=== PATIENT | male | born 1935 | race Caucasian/White ===

== ENCOUNTER 2016-10-06 09:25 | Inpatient (IN) ==
[2016-10-06] MEDS ORDERED: FUROSEMIDE 40 MG/4 ML VIAL IV STA (10:29)
[2016-10-06] MEDS ORDERED: PANTOPRAZOLE 40 MG VIAL IV STA (10:29)
[2016-10-06] MEDS ORDERED: ONDANSETRON 4 MG/2 ML VIAL IV STA ×2 (10:29→12:30)
[2016-10-06] MEDS ORDERED: MORPHINE 2 MG/1 ML SYRINGE IV STA (10:29)
[2016-10-06] MEDS ORDERED: ALUM/MAG/SIMETH/LIDO VISC 1:1 30 ML BOTTLE PO STA (10:29)
[2016-10-06 10:37] LABS: Basophils % 0.4 % (0.0-0.8); Eosinophils # 0.1 10*3/uL (0.0-0.87); Eosinophils % 0.8 % (0.00-10.9); Hematocrit 37.7 VOL% (42.0-52.0); Hemoglobin 12.9 GM/DL (14.0-18.0); Immature Granulocytes % 0.4 %; Immature Granulocytes Absolute 0.04 #; Lymphocytes # 1.3 10*3/uL (1.4-4.0); Lymphocytes % 12.6 % (21.2-54.2); Mean Corpuscular HGB Conc 34.2 GM/DL (32-36); Mean Corpuscular Hemoglobin 33 PG (27-34); Mean Corpuscular Volume 96.7 FL (87-102); Mean Platelet Volume 10.1 FL (9.6-12.0); Monocytes % 10.1 % (1.7-12.7); Neutrophils # 7.6 10*3/uL (1.4-7.4); Neutrophils % 75.7 % (38.7-73.9); Platelet Count 136 T/CUMM (130-400); Red Cell Distribution Width 17.1 % (9.3-17.3)
[2016-10-06] MEDS ORDERED: ONDANSETRON 4 MG/2 ML VIAL ONE ×2 (10:53→12:27)
[2016-10-06] MEDS ORDERED: MORPHINE 2 MG/1 ML SYRINGE ONE (10:53)
[2016-10-06] MEDS ORDERED: PANTOPRAZOLE 40 MG VIAL IV ONE (10:53)
[2016-10-06] MEDS ORDERED: ALUM/MAG/SIMETH/LIDO VISC 1:1 30 ML BOTTLE PO ONE (10:53)
[2016-10-06] MEDS ORDERED: FUROSEMIDE 40 MG/4 ML VIAL ONE (10:53)
--- NOTE | 2016-10-06 11:00 | XRay Report ---
Portable chest Date: 10/06/2016 Clinical history: Generalized abdominal pain Comparison: 10/28/2012 Technique: Portable AP sitting chest Findings: The heart is minimally enlarged with uncoiling of the aorta. Chronic scarring in the lungs with atelectasis at the lung bases. Degenerative changes are noted. Impression: Chronic scarring with atelectasis at the lung bases. Minimal cardiomegaly. PROCEDURE INTERPRETED AT [facility] DEPARTMENT OF RADIOLOGY Final Report Signed by: Dr. Jenelle Beckford
--- NOTE | 2016-10-06 11:02 | XRay Report ---
Exam: XR abdomen 2V Date: 10/06/2016 10:30 AM Comparison: None Indication: Generalized abdominal pain Technique:[Supine abdomen] Findings: Increased fecal material in the colon with no evidence bowel obstruction. 3 mm left midpole renal calculus with nonspecific calcifications of the pelvis. Degenerative changes are noted. Impression: Nonobstructive bowel gas pattern. Increased fecal material consistent with constipation. 3 mm left midpole renal calculus with nonspecific calcifications in the pelvis. PROCEDURE INTERPRETED AT [facility] DEPARTMENT OF RADIOLOGY Final Report Signed by: Dr. Jenelle Beckford
[2016-10-06 11:09] LABS: Alanine Aminotransferase 34 U/L (16-61); Albumin 2.8 G/DL (3.4-5.0); Alkaline Phosphatase 69 U/L (45-117); Aspartate Amino Transferase 35 U/L (0-37); Blood Urea Nitrogen 28 MG/DL (7-18); Calcium 8.8 MG/DL (8.5-10.1); Glucose 102 MG/DL (74-106); Magnesium 1.9 MG/DL (1.8-2.4); Osmolality,Calculated 288.1 MOS/KG (273-304); Potassium 3.8 MMOL/L (3.5-5.1); Sodium 142 MMOL/L (136-145); Total Protein 6.7 G/DL (6.4-8.3); Troponin I Only < 0.015 NG/ML (0.00-0.045)
--- NOTE | 2016-10-06 11:10 | EKG Report ---
Stationary ECG Study [facility] ER Test Date: 10/06/2016 11:08:13 AM Pat Name: JOSE A MOORE Department: Room: Gender: M [employer] Worker: : [id number] Requested by: Akhil Barrett Order Number: [id number] Reading MD: NILDA GOODMAN Intervals [place] Rate: 54 P: -2 OR: 248 QRS: -74 QRSD: 161 T: -10 QT: 507 QTc: 492 Interpretive Statements SINUS BRADYCARDIA WITH PROLONGED OR INTERVAL RIGHT BUNDLE BRANCH BLOCK LEFT ANTERIOR FASCICULAR BLOCK Electronically Signed On 10-06-16 17:32:35 CDT by NILDA GOODMAN [email or web address]
--- NOTE | 2016-10-06 11:20 | CT Report ---
History: Generalized abdominal pain. Nausea. History of prostate cancer Date: 10/06/2016 Study: CT abdomen and pelvis without contrast Comparison exam: Contrast CT abdomen and pelvis September 29, 2016 Technique: Spiral CT sections were obtained from the lung bases to the pubic symphysis without contrast. The CT exam was performed using one or more of the following dose reduction techniques: Automated exposure control, adjustment of the mA and/or kV according to patient size, or use of iterative reconstruction technique. CT abdomen: The partially visualized lung bases are clear. There is mild to moderate coronary artery calcification involving the left anterior descending and left circumflex coronary arteries. There is mild increased haziness of the peripancreatic fat compatible with pancreatitis, which represents a change from the previous study. There is no focal soft tissue abnormality of the pancreas. There is some stable nodular calcification within or adjacent to the lateral border of the pancreatic head. There is moderate nonspecific gallbladder distention. There is no intrahepatic or gross extrahepatic biliary dilatation. The liver, spleen, and adrenal glands are unremarkable. There is no gross solid renal parenchymal mass. Benign renal cysts are present as before. There is a nonobstructing left renal stone measuring 5.2 mm in the mid left kidney. There is moderate left-sided hydronephrosis and hydroureter related to a region of mass effect in the bladder at the left UVJ, discussed below. There is no aneurysm of the mildly calcified aorta. There is no evidence of pneumoperitoneum or bowel obstruction. There is diverticulosis without saqib diverticulitis. CT pelvis: There is masslike thickening of the wall of the base of bladder, more so at and to the left of midline, which extends to the left UVJ region. This measures at least 2.8 cm thickness. This could represent invasion of the base of bladder from prostate cancer rather than primary bladder neoplasm. This appearance is similar to the comparison study. There is left inguinal lymphadenopathy which should be readily accessible to percutaneous biopsy if needed. This includes a 2.6 cm short axis diameter left inguinal lymph node. Impression: Continued prominent left-sided hydronephrosis and hydroureter related to abnormal soft tissue thickening of the base of the bladder at the UVJ level. This could represent metastatic prostate cancer rather than primary bladder neoplasm. Left inguinal pathologic lymphadenopathy CT changes consistent with acute pancreatitis Coronary artery calcification Left nephrolithiasis PROCEDURE INTERPRETED AT [facility] DEPARTMENT OF RADIOLOGY Final Report Signed by: Dr. Shanna Mendoza
--- NOTE | 2016-10-06 11:20 | Emergency Department Note ---
IJuan Kasabria, am scribing for, and in the presence of, Akhil Bravo MD 10:45. Lawrence Vaz Charles R, MD, personally performed the services described in this documentation, ascribed by Julianna Martinez in my presence, and it is both accurate and complete . Arrival - Arrival Chief Complaint: Abdominal / Flank Pain Stated Complaint: Right upper abdominal pain,left dvt,bladder&prosta ED Nursing Triage Note: Pt c/o generalized abd pain with nausea started at 0300 this am. Pt also wants his left leg checked B/C he was DX with a DVT in the leg Wed in [facility]. Mode of Arrival: Wheelchair Limitations: No Limitations Source: Patient Time Seen by Provider: 10/06/16 10:21 - History of Present Illness HPI Narrative: This is a 80 y/o white male presenting to the ED with c/o generalized epigastric tenderness with nausea that onset this morning at approximately 0300am. Pt states he was recently diagnosed with bladder and prostate cancer. While in [place] at [facility] pt was taken off Coumadin and given Lovenox injections to his abdomen. Pt's constipation is resolved because he has been taking stool softeners daily. He has nausea but denies vomiting, diarrhea, back pain, and chills. His PMHx is consistent with rheumatoid arthritis, poor circulation to feet, atrial fibrillation which is followed by Dr. Donald, and HTN. Pt's PCP is Dr. Wellington. Pt also wants his left leg evaluated because he was diagnosed with a DVT in his leg at [facility] Sunday. Consistency: constant Severity: moderate Allergies/Adverse Reactions: Allergies Allergy/AdvReac Type Severity Reaction Status Date / Time codeine Allergy Mild Nausea Verified 04/10/16 06:46 Iodinated Contrast Media - Allergy Mild Vomiting Verified 04/10/16 06:46 Oral and [Iodinated Contrast Media - IV Dye] Home Medications: Home Medications Medication Instructions Recorded Confirmed Type Amiodarone Tab [Cordarone Tab] 200 mg PO BID 04/07/16 10/06/16 History Ascorbic Acid [Vitamin C] 250 mg PO DAILY 04/07/16 10/06/16 History Atenolol 50 mg PO BID 04/07/16 10/06/16 History Furosemide Tab [Lasix Tab] 20 mg PO DAILY 04/07/16 10/06/16 History [place]-3S/Dha/Epa/Fish Oil [Fish 1 each PO DAILY 04/07/16 10/06/16 History Oil 1,200 mg Softgel] Psyllium Seed (with Sugar) 822 gm PO DAILY 04/07/16 10/06/16 History [Metamucil Powder] Ranitidine Tab [Zantac Tab] 75 mg PO DAILY 04/07/16 10/06/16 History Tamsulosin [Flomax] 0.4 mg PO DAILY 04/07/16 10/06/16 History Warfarin [Coumadin] 5 mg PO DAILY@1800 04/07/16 10/06/16 History Vitamin E Acid Succinate [Vitamin 1 tablet PO DAILY 06/16/16 10/06/16 History E] amLODIPine [Norvasc] 5 mg PO DAILY 06/21/16 10/06/16 History Enoxaparin [Lovenox] 120 mg SUBCUT Q24H 10/06/16 10/06/16 History Review of System - Review of System 12 point system: reviewed and no additional remarkable complaints except as stated - Review of System Constitutional: Absent: chills, fever, weakness Eyes: Absent: vision change Head/Ears/Nose/Throat: Absent: nasal drainage Respiratory: Absent: cough, wheezing Cardiovascular: Absent: chest pain, dyspnea on exertion Gastrointestinal: Present: abdominal pain (epigastric ), nausea. Absent: vomiting, diarrhea Genitourinary male: Absent: dysuria Musculoskeletal: Absent: arm pain, back pain, leg pain, neck pain Skin: Absent: rash Neurological: Absent: headache, weakness, numbness, confusion, vertigo Psychiatric: Absent: anxiety Endocrine: Absent: fatigue Hematological/Lymphatic: Absent: easy bleeding Allergic/Immunologic: Absent: facial swelling Medical,Surgical,& Family Hx - Medical History Cardio: History of: Cardiac Dysrhythmia (A FIB DR DONALD), CHF, Hypertension, Cardiovascular Problems (PT STATES POOR CIRCULATION IN FEET.) Psychological: No history of: Psychiatric Problems Neurology: History of: Vertigo No history of: Seizures HEENT: History of: Eye Problem (CATARACT SURGERY) Endocrine: History of: Dyslipidemia Rheumatology: History of;: Rheumatoid Arthritis Respiratory: History of: Pneumonia (PAST HX 1977) Renal: No history of: Renal Problems Genitourinary: History of: Bladder Problem (GROWTH BLADDER), Kidney Stones ( PAST HX), Prostate Problems (DR HIGUERA PAST HX OF PROSTATE CANCER 1998) Gastrointestinal: History of: GERD, Hemorrhoids (INTERNAL) Hematology: History of: Clotting Problems (DVT LEFT LEG 1989) Other: History of: Cancer (PROSTATE CANCER, SKIN CANCER UNDER LEFT EYE) - Surgical History Cardiac Surgeries: Sugical HX of: Cardiac Surgery (LEFT LEG VEIN ABLATION 2011. DR JIM) Thoracic Surgeries: Surgical HX of;: Lithotripsy (X1 ) HEENT Surgeries: Surgical HX of: Eye Surgery (CATARACT SURGERY RIGHT EYE) Abdominal Surgeries: Surgical HX of: Colonoscopy (2014 DR SUGGS) Reproductive Surgeries: Surgical HX of;: Cystoscopy (), Genitourinary Surgery (TURB), Prostate Surgery, Vasectomy Orthopedic Surgeries: Surgical HX of;: Total Knee Replacement (LEFT) - Family History Family History: Reports;: Family Cancer (BROTHER), Family Diabetes (BROTHER), Family Heart Disease (SIBLINGS), Family Hypertension (PARENTS BROTHER), Family Stroke (PAREENTS) - Social History Smoking Status: Never smoker Exam Vital Signs: Vital Signs Temperature 98.6 F 10/06/16 09:51 Pulse Rate 56 L 10/06/16 09:51 Respiratory Rate 20 10/06/16 09:51 Blood Pressure 141/73 10/06/16 09:51 O2 Sat by Pulse Oximetry 96 10/06/16 09:27 - General General appearance: alert, in no apparent distress - Head Head exam: Present: atraumatic, normocephalic, normal inspection - Eye Eye exam: Present: normal appearance, PERRL, EOMI - ENT ENT exam: Present: normal exam, normal oropharynx, mucous membranes moist, TM's normal bilaterally, normal external ear exam - Neck Neck exam: Present: normal inspection, full ROM, trachea midline. Absent: tenderness - Chest Chest inspection: Present: normal inspection, symmetric chest wall rise. Absent : tenderness - Respiratory Respiratory exam: Present: normal lung sounds bilaterally - Cardiovascular Cardiovascular exam: Present: regular rate, normal rhythm, normal heart sounds - Abdominal Exam Abdominal exam: Present: soft, tenderness (epigastric ), normal bowel sounds. Absent: distention - Extremities Exam Extremities exam: Present: normal inspection, full ROM, normal capillary refill , pedal edema (+2 bilaterally). Absent: tenderness, calf tenderness - Back Exam Back exam: Present: normal inspection, full ROM. Absent: tenderness - Neurological Exam Neurological exam: Present: alert, oriented X3, CN II-XII intact, normal gait, reflexes normal - Psychiatric Psychiatric exam: Present: normal affect, normal mood - Skin Skin exam: Present: warm, dry, intact, normal color. Absent: rash, diaphoresis Course - Consultations Consultation #1: Hospitalist will admit patient Time: 12:12 Results - Labs CBC & BMP: 10/06/16 10:03 10/06/16 10:03 Lab Results: I have reviewed the patients labs Labs: Laboratory Tests 10/06/16 10:03 Sodium 142 Potassium 3.8 Chloride 109 H Carbon Dioxide 24 Anion Gap 12.8 BUN 28 H Creatinine 1.30 GFR Calculation 74 BUN/Creatinine Ratio 21.00 H Glucose 102 Calculated Osmolality 288.1 Calcium 8.8 Magnesium 1.9 Total Bilirubin 0.50 AST 35 ALT 34 Alkaline Phosphatase 69 Troponin I < 0.015 Total Protein 6.7 Albumin 2.8 L Globulin 3.9 H Albumin/Globulin Ratio 0.7 L Lipase 46599.0 H - Diagnostic Findings Procedure: Abdominal x-ray: report reviewed by me (nonobstructive bowel gas pattern. Increased fecal material consistent with constipation. 3mm left midpole renal calculus with nonspecific calcifications in the pelvis. ), Chest x -ray: report reviewed by me (chronic scarring with atelectasis at the lung bases. Minimal cardiomegaly.) Critical Care Time Critical Care Time: Yes Total Critical Care Time: 60 Disposition Clinical Impression: Abdominal pain, Pancreatitis, Nausea & vomiting, Prostate bladder cancer Case discussed with: patient, patient's family Disposition: Still a Patient Condition: Guarded Time of Disposition: 12:13
[2016-10-06 11:38] LABS: Amylase 1510 U/L (25-115)
[2016-10-06 12:14] LABS: Apearance,Urine CLEAR (Clear); Bilirubin,Urine Negative (Negative); Blood, Urine Negative (Negative); Glucose,Urine (UA) Negative (Negative); Ketones,Urine Negative (Negative); Mucus,Urine Occasional /LPF (Occasional); Nitrite,Urine Negative (Negative); Protein,Urine Negative; RBC,Urine 1 /HPF (0-4); Urine Color Straw (Yellow); Urine Specific Gravity 1.006 (1.001-1.035); Urine Urobilinogen < 2.0 EU/DL (0.2-1.0); WBC,Urine 2 /HPF (0-6)
--- NOTE | 2016-10-06 13:06 | Hospitalist History & Physical ---
Assessment and Plan - Time spent with patient Time spent with patient: Greater than 30 minutes (1) Left leg DVT Status: Acute Assessment and plan: Mr. Lewis is a very pleasant 80-year-old white male with history of hypertension , A. fib on weight-based Lovenox since Sunday, bladder cancer status post chemo, prostate cancer 2 admitted by the hospitalist service with nausea and vomiting and abdominal pain due to pancreatitis. Patient is being admitted to the floor on a monitored bed and given IV fluids, n.p.o. status, pain and nausea control. Oncology will be consulted for his bladder and prostate cancer and management of this new onset DVT. As of Sunday patient's Coumadin had been stopped and weight-based Lovenox had been started per physician at [facility]. We will go ahead and place a Bonilla due to the volume of fluids to be given and patient's dysuria. A Bonilla cannot be placed by nursing staff will go ahead and consult urology to help. Patient's home meds will be restarted as well. Dr. Ayala to see and examined patient and further recommendations to follow. Current Visit: Yes (2) Bladder cancer Status: Acute Current Visit: Yes (3) Prostate cancer Status: Acute Current Visit: Yes (4) History of atrial fibrillation Status: Acute Current Visit: Yes (5) Hypertension Status: Acute Current Visit: Yes (6) Abdominal pain Status: Acute Current Visit: Yes (7) Pancreatitis Status: Acute Current Visit: Yes (8) Nausea & vomiting Status: Acute Current Visit: Yes History of Present Illness Chief complaint: Abdominal pain, nausea, vomiting History of present illness: Mr. Lewis is a 80 year old male with history of A. fib on Coumadin, prostate cancer 2, bladder cancer, and hypertension presenting to the ED with nausea vomiting and abdominal pain that started acutely at 3 AM this morning. Patient states the pain woke him up and was a 10/10 with more in the epigastrium area. Patient states this is associated with nausea and vomiting as well. Patient states he was diagnosed with prostate and bladder cancer around May. He is undergone [address] Reno with no shrinkage of the tumor and he was sent to [facility] on Sunday for further evaluation. Blood clot was found on Sunday in the left lower leg with patient's INR on Coumadin being 2.2. The doctor at [facility] stopped his Coumadin and put him on weight-based Lovenox twice daily. Patient states he can urinate but it just trickles out mostly. He has also had loss of appetite and generalized weakness since starting chemo. Patient's loan clerk is Dr. Donald and urologist is Dr. Higuera. Upon exam patient is alert and oriented but he is uncomfortable due to just not feeling well. He is tender to palpation throughout his abdomen, especially in the epigastric and left upper quadrant. Patient has bilateral lower extremity edema with left greater than the right. CT scan of the abdomen and pelvis showed continued prominent left-sided hydronephrosis and hydroureter related to abnormal soft tissue thickening at the base of the bladder at the UVJ level. This represents metastatic prostate cancer and primary bladder neoplasm. Patient also has increased haziness of the peripancreatic fat compatible with pancreatitis which is a change from his previous study. There is moderate gallbladder distention with no extrahepatic biliary dilatation. Patient's white count is normal and H&H is stable. Patient's amylase is 1510 and lipase is 23,131. His liver enzymes are normal. Patient denies headache, dysphasia, chest pain, shortness of breath, or constipation. Patient's case was discussed with Dr. Bravo the ED physician and Dr. Ayala the attending hospitalist, it was agreed patient would be admitted for further evaluation and treatment. Home Medications Medication Instructions Recorded Confirmed Type Amiodarone Tab [Cordarone Tab] 200 mg PO BID 04/07/16 10/06/16 History Ascorbic Acid [Vitamin C] 250 mg PO DAILY 04/07/16 10/06/16 History Atenolol 50 mg PO BID 04/07/16 10/06/16 History Furosemide Tab [Lasix Tab] 20 mg PO DAILY 04/07/16 10/06/16 History [place]-3S/Dha/Epa/Fish Oil [Fish 1 each PO DAILY 04/07/16 10/06/16 History Oil 1,200 mg Softgel] Psyllium Seed (with Sugar) 822 gm PO DAILY 04/07/16 10/06/16 History [Metamucil Powder] Ranitidine Tab [Zantac Tab] 75 mg PO DAILY 04/07/16 10/06/16 History Tamsulosin [Flomax] 0.4 mg PO DAILY 04/07/16 10/06/16 History Warfarin [Coumadin] 5 mg PO DAILY@1800 04/07/16 10/06/16 History Vitamin E Acid Succinate [Vitamin 1 tablet PO DAILY 06/16/16 10/06/16 History E] amLODIPine [Norvasc] 5 mg PO DAILY 06/21/16 10/06/16 History Enoxaparin [Lovenox] 120 mg SUBCUT Q24H 10/06/16 10/06/16 History Allergies Allergy/AdvReac Type Severity Reaction Status Date / Time codeine Allergy Mild Nausea Verified 04/10/16 06:46 Iodinated Contrast Media - Allergy Mild Vomiting Verified 04/10/16 06:46 Oral and [Iodinated Contrast Media - IV Dye] Medical,Surgical,& Family Hx - Medical History Cardio: History of: Cardiac Dysrhythmia (A FIB DR DONALD), CHF, Hypertension, Cardiovascular Problems (PT STATES POOR CIRCULATION IN FEET.) Psychological: No history of: Psychiatric Problems Neurology: History of: Vertigo No history of: Seizures HEENT: History of: Eye Problem (CATARACT SURGERY) Endocrine: History of: Dyslipidemia Rheumatology: History of;: Rheumatoid Arthritis Respiratory: History of: Pneumonia (PAST HX 1977) Renal: No history of: Renal Problems Genitourinary: History of: Bladder Problem (GROWTH BLADDER), Kidney Stones ( PAST HX), Prostate Problems (DR HIGUERA PAST HX OF PROSTATE CANCER 1998) Gastrointestinal: History of: GERD, Hemorrhoids (INTERNAL) Hematology: History of: Clotting Problems (DVT LEFT LEG 1989) Other: History of: Cancer (PROSTATE CANCER, SKIN CANCER UNDER LEFT EYE) - Surgical History Cardiac Surgeries: Sugical HX of: Cardiac Surgery (LEFT LEG VEIN ABLATION 2011. DR JIM) Thoracic Surgeries: Surgical HX of;: Lithotripsy (X1 ) HEENT Surgeries: Surgical HX of: Eye Surgery (CATARACT SURGERY RIGHT EYE) Abdominal Surgeries: Surgical HX of: Colonoscopy (2014 DR SUGGS) Reproductive Surgeries: Surgical HX of;: Cystoscopy (), Genitourinary Surgery (TURB), Prostate Surgery, Vasectomy Orthopedic Surgeries: Surgical HX of;: Total Knee Replacement (LEFT) - Family History Family History: Reports;: Family Cancer (BROTHER), Family Diabetes (BROTHER), Family Heart Disease (SIBLINGS), Family Hypertension (PARENTS BROTHER), Family Stroke (PAREENTS) - Social History Smoking Status: Never smoker Frequency of Alcohol Use: None Type of Drug Use: None Marital Status: Lives With:: Spouse Functional capacity: independent ambulation Review of systems: A complete 10 system review of systems was obtained and pertinent positives and negatives per HPI Exam - Constitutional Vitals: Period Temp Pulse Resp BP Sys/Herrera Pulse Ox Last 24 Hr 98.6 F-98.6 F 56-56 20-20 141-141/73-73 96 Exam: Constitutional System: No distress. No tremulousness. Head: Normocephalic, atraumatic. Ears, Nose and Throat System: No evidence of Otitis or Mastoiditis. No epistaxis or discharge Eyes System: Pupils equal, round, and reactive. Extraocular muscles intact. Neck: Supple, without adenopathy, No jugular venous distention. No thyromegaly, neck mass, or prior surgery apparent. Respiratory System: Chest clear to auscultation. Cardiovascular System: Heart with irregularly irregular and bradycardic rate and rhythm. No murmur. GI System: Abdomen soft, tender to palpation throughout the abdomen more so in epigastric region and left upper quadrant patient is also tender and solid in the suprapubic region. Normo active bowel sounds present. Musculoskeletal System: limbs with bilateral pedal edema with left greater than right. Full distal pulses. Neurological System: No discernable sensory deficit. No aphasia Psychiatric System: Conversation is rational Results - Labs CBC & BMP: 10/06/16 10:03 10/06/16 10:03 Lab Results: I have reviewed the past 24 hour labs - EKG EKG shows: bradycardia, atrial fibrillation - Impressions EKG shows sinus bradycardia with prolonged NH interval, right bundle branch block, possible anterior NM of indeterminate age, inferior NM of indeterminate age - Diagnostic Findings Procedure: Abdominal x-ray: report reviewed by me (Nonobstructive bowel gas pattern with increased fecal material consistent with constipation 3 mm left midpole renal calculus), Chest x-ray: report reviewed by me (Chronic scarring with atelectasis of the lung bases with minimal cardiomegaly), CT Abdomen and Pelvis: report reviewed by me, pending (Prominent left-sided hydronephrosis and hydroureter related to abnormal soft tissue thickening at the base of the bladder at the UVJ level this represents metastatic prostate cancer primary bladder neoplasm. Mild increased haziness of the peripancreatic fat compatible with pancreatitis with moderate nonspecific gallbladder distention.)
[2016-10-06] MEDS ORDERED: ZALEPLON 5 MG CAPSULE PO PRN (13:56)
[2016-10-06] MEDS ORDERED: ONDANSETRON 4 MG/2 ML VIAL IV PRN (13:56)
[2016-10-06] MEDS ORDERED: ENOXAPARIN 120 MG/0.8 ML SYRINGE SUBCUT SCH (14:00)
[2016-10-06] MEDS: SODIUM CHLORIDE 0.9% 1,000 ML IV SCH ×2 (15:09→20:53)
[2016-10-06] MEDS: ENOXAPARIN 120 MG/0.8 ML SYRINGE SUBCUT SCH (15:10)
[2016-10-06] MEDS: FAMOTIDINE 20 MG/2 ML VIAL IV SCH (15:10)
[2016-10-06 16:21] LABS: Apearance,Urine CLEAR (Clear); Bacteria,Urine Occasional /HPF (Few); Bilirubin,Urine Negative (Negative); Blood, Urine Moderate mg/dL (Negative); Glucose,Urine (UA) Negative (Negative); Hyaline Casts,Urine 1 /LPF (0-3); Ketones,Urine Negative (Negative); Mucus,Urine Occasional /LPF (Occasional); Nitrite,Urine Negative (Negative); Protein,Urine Negative; RBC,Urine 37 /HPF (0-4); Urine Color Straw (Yellow); Urine Specific Gravity 1.006 (1.001-1.035); Urine Urobilinogen < 2.0 EU/DL (0.2-1.0); WBC,Urine 6 /HPF (0-6)
[2016-10-06] MEDS: MORPHINE 2 MG/1 ML SYRINGE IV PRN (17:08)
[2016-10-06] MEDS: AMIODARONE 200 MG TABLET PO SCH (20:51)
[2016-10-06] MEDS: ATENOLOL 50 MG TABLET PO SCH (20:51)
[2016-10-07] MEDS: SODIUM CHLORIDE 0.9% 1,000 ML IV SCH ×3 (01:30→20:29)
[2016-10-07] MEDS: ENOXAPARIN 120 MG/0.8 ML SYRINGE SUBCUT SCH (01:42)
[2016-10-07] MEDS: FAMOTIDINE 20 MG/2 ML VIAL IV SCH ×2 (01:42→14:03)
[2016-10-07 05:42] LABS: Basophils % 0.2 % (0.0-0.8); Eosinophils % 0.3 % (0.00-10.9); Hematocrit 34.7 VOL% (42.0-52.0); Hemoglobin 11.5 GM/DL (14.0-18.0); Immature Granulocytes % 0.6 %; Immature Granulocytes Absolute 0.07 #; Lymphocytes # 1.1 10*3/uL (1.4-4.0); Lymphocytes % 9.1 % (21.2-54.2); Mean Corpuscular HGB Conc 33.1 GM/DL (32-36); Mean Corpuscular Hemoglobin 32 PG (27-34); Mean Corpuscular Volume 97.7 FL (87-102); Mean Platelet Volume 10.4 FL (9.6-12.0); Monocytes # 1.3 10*3/uL (0.11-0.8); Monocytes % 10.6 % (1.7-12.7); Neutrophils # 9.9 10*3/uL (1.4-7.4); Neutrophils % 79.2 % (38.7-73.9); Platelet Count 124 T/CUMM (130-400); Red Blood Count 3.55 MC/CUMM (3.8-5.5); Red Cell Distribution Width 17.2 % (9.3-17.3); White Blood Count 12.5 T/CUMM (4-12)
[2016-10-07 06:19] LABS: Calcium 8.1 MG/DL (8.5-10.1); Magnesium 1.8 MG/DL (1.8-2.4); Osmolality,Calculated 287.8 MOS/KG (273-304); Potassium 3.6 MMOL/L (3.5-5.1)
--- NOTE | 2016-10-07 08:48 | Hospitalist Progress Note ---
Assessment and Plan (1) Pancreatitis Status: Acute Assessment and plan: The patient is well hydrated and pain is beginning to improve. We will continue with clear liquids for now and recheck electrolytes and amylase tomorrow. We await consultation with Dr. Camargo today. Current Visit: Yes Qualifiers: Chronicity: acute Pancreatitis type: idiopathic Acute pancreatitis complication: no infection or necrosis Qualified Code(s): K85.00 - Idiopathic acute pancreatitis without necrosis or infection (2) Abdominal pain Status: Acute Current Visit: Yes (3) Left leg DVT Status: Acute Current Visit: Yes Qualifiers: Affected thrombotic vein of extremity: femoral (4) Bladder cancer Status: Acute Current Visit: Yes (5) Prostate cancer Status: Acute Current Visit: Yes Hospitalist: Subjective Interval history: The patient is a little stronger today and does not appear flushed. He still has epigastric discomfort but less generalized abdominal pain. The patient was able to tolerate clear liquids this morning. Exam - Constitutional Vitals: Period Temp Pulse Resp BP Sys/Herrera Pulse Ox Last 24 Hr 97.6 F-98.9 F 53-84 16-20 136-187/64-84 92-95 Exam: Constitutional System: Mild distress. No tremulousness. Head: Normocephalic, atraumatic. Ears, Nose and Throat System: No evidence of Otitis or Mastoiditis. No epistaxis or discharge Eyes System: Pupils equal, round, and reactive. Extraocular muscles intact. Neck: Supple, without adenopathy, No jugular venous distention. No thyromegaly , neck mass, or prior surgery apparent. Respiratory System: Chest clear to auscultation. Cardiovascular System: Heart with regular rate and rhythm. No murmur. GI System: Abdomen soft, moderate epigastric tenderness without guarding. Hypo- active bowel sounds present. Musculoskeletal System: limbs with 1+ pedal edema. Full distal pulses. Neurological System: No discernable sensory deficit. No aphasia Psychiatric System: Conversation is rational Results - Labs CBC & BMP: 10/07/16 04:46 10/07/16 04:46 Lab Results: I have reviewed the past 24 hour labs Quality Measures - VTE Contraindication to Mechanical VTE Prophylaxis: Current Diagnosis of DVT
[2016-10-07] MEDS: ATENOLOL 50 MG TABLET PO SCH ×2 (08:50→20:28)
[2016-10-07] MEDS: AMIODARONE 200 MG TABLET PO SCH ×2 (08:51→20:29)
[2016-10-07] MEDS: VITAMIN E 200 UNIT CAPSULE PO SCH (08:51)
[2016-10-07] MEDS: FUROSEMIDE 20 MG TABLET PO SCH (08:51)
[2016-10-07] MEDS: ASCORBIC ACID 500 MG TABLET PO SCH (08:51)
[2016-10-07] MEDS: OMEGA 3 ACID ETHYL ESTERS 1 GM CAPSULE PO SCH (08:52)
[2016-10-07] MEDS: PSYLLIUM POWDER 3.7 GM/PACK PO SCH (08:52)
[2016-10-07] MEDS ORDERED: TAMSULOSIN 0.4 MG CAPSULE PO SCH (09:00)
[2016-10-07] MEDS: MORPHINE 2 MG/1 ML SYRINGE IV PRN (09:55)
--- NOTE | 2016-10-07 12:17 | Gastrointestinal Consult Note ---
Assessment and Plan - Time spent with patient Time spent with patient: Greater than 30 minutes (1) Pancreatitis Status: Acute Current Visit: Yes Qualifiers: Qualified Code(s): K85.00 - Idiopathic acute pancreatitis without necrosis or infection (2) Other specified counseling Status: Acute Current Visit: Yes History of Present Illness History of present illness: Mr. Lewis is a 80 year old male Home Medications Medication Instructions Recorded Confirmed Type Amiodarone Tab [Cordarone Tab] 200 mg PO BID 04/07/16 10/06/16 History Ascorbic Acid [Vitamin C] 250 mg PO DAILY 04/07/16 10/06/16 History Atenolol 50 mg PO BID 04/07/16 10/06/16 History Furosemide Tab [Lasix Tab] 20 mg PO DAILY 04/07/16 10/06/16 History [place]-3S/Dha/Epa/Fish Oil [Fish 1 each PO DAILY 04/07/16 10/06/16 History Oil 1,200 mg Softgel] Psyllium Seed (with Sugar) 822 gm PO DAILY 04/07/16 10/06/16 History [Metamucil Powder] Ranitidine Tab [Zantac Tab] 75 mg PO DAILY 04/07/16 10/06/16 History Tamsulosin [Flomax] 0.4 mg PO DAILY 04/07/16 10/06/16 History Vitamin E Acid Succinate [Vitamin 1 tablet PO DAILY 06/16/16 10/06/16 History E] amLODIPine [Norvasc] 5 mg PO DAILY 06/21/16 10/06/16 History Enoxaparin [Lovenox] 120 mg SUBCUT Q24H 10/06/16 10/06/16 History Allergies Allergy/AdvReac Type Severity Reaction Status Date / Time codeine Allergy Mild Nausea Verified 04/10/16 06:46 Iodinated Contrast Media - Allergy Mild Vomiting Verified 04/10/16 06:46 Oral and [Iodinated Contrast Media - IV Dye] Medical,Surgical,& Family Hx - Medical History Cardio: History of: Cardiac Dysrhythmia (A FIB DR GOODMAN), CHF, Hypertension, Cardiovascular Problems (PT STATES POOR CIRCULATION IN FEET.) Psychological: No history of: Psychiatric Problems Neurology: History of: Vertigo No history of: Seizures HEENT: History of: Eye Problem (CATARACT SURGERY) Endocrine: History of: Dyslipidemia Rheumatology: History of;: Rheumatoid Arthritis Respiratory: History of: Pneumonia (PAST HX 1977) Renal: No history of: Renal Problems Genitourinary: History of: Bladder Problem (GROWTH BLADDER), Kidney Stones ( PAST HX), Prostate Problems (DR HIGUERA PAST HX OF PROSTATE CANCER 1998) Gastrointestinal: History of: GERD, Hemorrhoids (INTERNAL) Hematology: History of: Clotting Problems (DVT LEFT LEG 1989) Other: History of: Cancer (PROSTATE CANCER, SKIN CANCER UNDER LEFT EYE) - Surgical History Cardiac Surgeries: Sugical HX of: Cardiac Surgery (LEFT LEG VEIN ABLATION 2011. DR JIM) Thoracic Surgeries: Surgical HX of;: Lithotripsy (X1 ) HEENT Surgeries: Surgical HX of: Eye Surgery (CATARACT SURGERY RIGHT EYE) Abdominal Surgeries: Surgical HX of: Colonoscopy (2014 DR SUGGS) Reproductive Surgeries: Surgical HX of;: Cystoscopy (), Genitourinary Surgery (TURB), Prostate Surgery, Vasectomy Orthopedic Surgeries: Surgical HX of;: Total Knee Replacement (LEFT) - Family History Family History: Reports;: Family Cancer (BROTHER), Family Diabetes (BROTHER), Family Heart Disease (SIBLINGS), Family Hematology (child), Family Hypertension (PARENTS BROTHER), Family Stroke (PARENTS) - Social History Smoking Status: Never smoker Frequency of Alcohol Use: None Type of Drug Use: None Exam - Constitutional Vitals: Period Temp Pulse Resp BP Sys/Herrera Pulse Ox Last 24 Hr 97.6 F-98.9 F 53-84 16-20 131-187/62-84 91-95 Results - Labs CBC & BMP: 10/07/16 04:46 10/07/16 04:46 Quality Measures - VTE Contraindication to Mechanical VTE Prophylaxis: Current Diagnosis of DVT Note Addendum: PLEASE NOTE -- automatic citation of patient information is unavoidable in this electronic note. I have made a reasonable effort to review the information cited , but it is not a part of my evaluation, impression, or recommendation unless specifically discussed in the dictated text that follows. As well, voice recognition software was used in the creation of this clinical note. Reasonable effort was made to identify and correct gross errors. Despite proofreading, errors in restorative rehab aide may be present, including nonsense verbiage at times. If you encounter such an error, please contact me at [phone] for discussion and correction. -- Mary Jo Chief complaint: abdominal pain, nausea, vomiting History of present illness: This is a new patient, a 80-year-old male seen by consultation for evaluation of abdominal pain with nausea and vomiting. The patient is admitted to the hospitalist service under the care of Dr. Ayala with a primary diagnosis of acute deep venous thrombosis and acute pancreatitis. The patient was admitted yesterday through the emergency department with primary complaint of abdominal pain, nausea, and vomiting. Evaluation at that time revealed elevated amylase and lipase as well as abnormal CT findings involving the pancreas and ultrasound finding of acute deep venous thrombosis. There was not evidence of biliary disease. The patient was admitted overnight and treated , as expected, with aggressive hydration and bowel rest. He now reports feeling some better but with continued mild abdominal discomfort. Of note, the patient suffers from prostate cancer and bladder cancer. He is under the care of Dr. Machado in this regard and has recently been referred to [facility] for evaluation and treatment of recalcitrant disease. There have been some medication changes recently. Patient denies fever, chills, night sweats, rigors, headache, dizziness, neck pain, visual changes, redness of the eyes, dysphagia, odynophagia, difficulty chewing, chest pain, shortness of breath, regurgitation, hematemesis, diarrhea, hematochezia, melena, proctalgia, constipation, change in bowel pattern generally, dysuria, skin changes, temperature regulation issues, flushing, easy bleeding/bruising, mental status change, yellowing of the eyes/skin, cutaneous eruptions, family history of gastrointestinal cancer and colon polyps, and other complaints in general. Review of systems: 12 point review of systems was negative except as documented above. Outpatient medications: amiodarone, vitamin C, atenolol, Lasix, Zantac, Flomax, Coumadin, Norvasc, Lovenox Inpatient medications: amiodarone, atenolol, Lovenox, Pepcid, Lasix, [place], Zofran, sodium chloride infusion, Flomax, [place] Past Medical History: atrial fibrillation, congestive heart failure, hypertension, vertigo, hyperlipidemia, rheumatoid arthritis, bladder growth, prostate cancer, gastroesophageal reflux disease, deep venous thrombosis Social history: negative tobacco. Negative alcohol Family history: no gastrointestinal cancers Physical examination: Vital Signs: Current vital signs reviewed and documented above. General Appearance: lying in bed. Comfortable. No apparent distress. Head: Normocephalic. Neck: Palpation of the neck revealed no abnormalities. Eyes: No scleral icterus. No scleral injection. No conjunctival pallor. Oral Cavity: Odor of breath was normal. No drooling was observed. Lips showed no abnormalities. Floor of the mouth showed no abnormalities. Pharynx: Oropharynx was normal. Lungs: Respiration rhythm and depth was normal. Cardiovascular: Heart rate and rhythm were normal. No murmurs were appreciated. Abdomen: abdomen was not distended. Abdominal palpation revealed mild tenderness and no hepatosplenomegaly. Ascites was not discovered. Abdominal auscultation revealed positive bowel sounds. Musculoskeletal System: Musculoskeletal system was grossly normal. Neurological: level of consciousness was normal. Speech was normal. Skin: General appearance was normal. Color and pigmentation were normal. No skin lesions. Laboratory: white blood count 12.5, hemoglobin 11.5, hematocrit 34.7, platelets 124, ALT 34, AST 35, total bilirubin 0.5, albumin 2.8, total protein 6.7, amylase 1500, lipase 23,000 Radiology: CT of the abdomen and pelvis, main 2016 -- CT changes consistent with acute pancreatitis; several non-G.I. findings Impressions: 1. Acute pancreatitis -- I agree with current therapy including aggressive volume resuscitation, bowel rest, and analgesia as indicated. The patient does not have evidence of biliary obstruction. Neither is there evidence of chronic alcohol abuse. The patient does not have evidence of severe hyperlipidemia or hypercalcemia. In this setting, medication-induced pancreatitis should be considered and careful scrutiny of his outpatient and inpatient medications list is important. Both Lasix and amiodarone are class I medications in this regard. As well there are case reports of pancreatitis with Lovenox and the patient recently started this medication. Some consideration should be given to discontinuing if feasible. Otherwise, continued supportive care is most reasonable. 2. Other specified counseling -- The patient was seen for greater than 30 minutes. The patient was counseled for greater than 50% of this time regarding differential diagnosis, likely diagnosis, diagnostic and therapeutic alternatives, risks/benefits/alternatives of medications and procedures, and plan of care generally. The patient expressed understanding and wishes to proceed. Recommendations: -- continue aggressive volume management -- continued bowel rest -- continued analgesia as indicated -- minimize medications to whatever extent possible with particular consideration of Lovenox, Lasix and amiodarone -- thank you for this consultation. We will follow with you.
--- NOTE | 2016-10-07 12:43 | Oncology Consult Note ---
History of Present Illness Chief complaint: Pancreatitis History of present illness: Mr. Lewis is a 80 year old male who is followed by Dr. 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 He also has bladder cancer including soft tissue invasion. He has been to [facility] and it was a recommendation that the patient received neoadjuvant chemotherapy. He has been placed on Gemzar plus cis-sac & fox of [place]. Dr. Jimenez mentioned in his dictation of August 23, 2016 that he was proceeding with day 1 of cycle 3 at that time and planned to give 4 cycles. Mr. Lewis developed DVT of the left leg more recently and was on Lovenox when he was admitted with pancreatitis. His daughter, who is a nurse, mention the fact that Lovenox can cause pancreatitis and she is correct. For this reason, I am switching him to Xarelto at a dose of 10 mg p.o. twice daily for now. Lab work on admission included a relatively normal CBC although his hemoglobin is minimally down at 12.9. He has a normal white cell count with an absolute neutrophil count of 7600 and his platelet count is 136,000. He has not reported any GI bleeding. On October 06, his amylase was 1510 with a lipase of 23,130. His comprehensive metabolic profile and LDH are essentially normal otherwise. ROS Gen.: Chronic weakness and chronic lower abdominal discomfort. Eyes: He has previously had cataract surgery. No history of chronic disease, infections or visual loss. 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 Also history of circulatory problems, atrial fibrillation, hypertension. GI: He has had relatively sudden onset of epigastric abdominal pain with nausea and anorexia. He has a history of GERD and hemorrhoids. : He has a history of kidney stones for which he has had lithotripsy.. Chronic lower abdominal discomfort primarily due to prostate and bladder cancer. Musculoskeletal: History of rheumatoid arthritis. He has had a total left knee replacement. Neurologic: No history of seizures, convulsions or paralysis. Psychiatric: No history of chronic psychiatric illness or psychiatric medications. Lymphatic: No history of significant or long-term lymphadenopathy Hematologic: He has a history of DVT and thrombophlebitis for several years, over 20. Skin: No history of chronic skin infections or rashes or significant skin lesions. Family history is positive for diabetes and cancer and one brother as well as family history of strokes and hypertension and heart disease. Social history: He does not use alcohol. He has never smoked. Physical examination: General: The patient is somewhat chronically ill-appearing and also appears acutely ill. Eyes: Normal lids and conjunctivae. ENT: Dentition is only fair. His hearing is normal. His oral mucosa and pharynx are normal. Neck: His trachea is midline. He has no neck masses. Lungs: Breath sounds are relatively normal without rubs, rales or rhonchi. There is symmetrical unlabored chest motion with respiration. Cardiovascular: He has no jugular venous distention, or clubbing. His heart rhythm is regular without murmur, gallop or rub. Abdomen: He is extremely tender in the epigastric area. I cannot identify ascites but he is very tender so I cannot check very closely. His abdomen is protuberant and appears somewhat distended. Musculoskeletal: There is no focal muscle atrophy or bone or joint deformity. Neurologic: Cranial nerves II through XII are intact. Therer are no focal neurologic deficits. Nodes: I palpate no submental, submandibular, cervical or supraclavicular adenopathy. Skin: Identified no ecchymoses or petechiae. Impression: Pancreatitis: The patient mentioned the possibility of Lovenox causing it and I agree that this is a possibility so I am holding Lovenox and start him on Xarelto at a relatively low dose considering his other problems. DVT: We are adjusting the dose of his anticoagulants and switching to rivaroxaban. Bladder cancer: with muscle invasion, receiving neoadjuvant chemotherapy. Prostate cancer: Status uncertain Home Medications Medication Instructions Recorded Confirmed Type Amiodarone Tab [Cordarone Tab] 200 mg PO BID 04/07/16 10/06/16 History Ascorbic Acid [Vitamin C] 250 mg PO DAILY 04/07/16 10/06/16 History Atenolol 50 mg PO BID 04/07/16 10/06/16 History Furosemide Tab [Lasix Tab] 20 mg PO DAILY 04/07/16 10/06/16 History [place]-3S/Dha/Epa/Fish Oil [Fish 1 each PO DAILY 04/07/16 10/06/16 History Oil 1,200 mg Softgel] Psyllium Seed (with Sugar) 822 gm PO DAILY 04/07/16 10/06/16 History [Metamucil Powder] Ranitidine Tab [Zantac Tab] 75 mg PO DAILY 04/07/16 10/06/16 History Tamsulosin [Flomax] 0.4 mg PO DAILY 04/07/16 10/06/16 History Vitamin E Acid Succinate [Vitamin 1 tablet PO DAILY 06/16/16 10/06/16 History E] amLODIPine [Norvasc] 5 mg PO DAILY 06/21/16 10/06/16 History Enoxaparin [Lovenox] 120 mg SUBCUT Q24H 10/06/16 10/06/16 History Allergies Allergy/AdvReac Type Severity Reaction Status Date / Time codeine Allergy Mild Nausea Verified 04/10/16 06:46 Iodinated Contrast Media - Allergy Mild Vomiting Verified 04/10/16 06:46 Oral and [Iodinated Contrast Media - IV Dye] Medical,Surgical,& Family Hx - Medical History Cardio: History of: Cardiac Dysrhythmia (A FIB DR GOODMAN), CHF, Hypertension, Cardiovascular Problems (PT STATES POOR CIRCULATION IN FEET.) Psychological: No history of: Psychiatric Problems Neurology: History of: Vertigo No history of: Seizures HEENT: History of: Eye Problem (CATARACT SURGERY) Endocrine: History of: Dyslipidemia Rheumatology: History of;: Rheumatoid Arthritis Respiratory: History of: Pneumonia (PAST HX 1977) Renal: No history of: Renal Problems Genitourinary: History of: Bladder Problem (GROWTH BLADDER), Kidney Stones ( PAST HX), Prostate Problems (DR HIGUERA PAST HX OF PROSTATE CANCER 1998) Gastrointestinal: History of: GERD, Hemorrhoids (INTERNAL) Hematology: History of: Clotting Problems (DVT LEFT LEG 1989) Other: History of: Cancer (PROSTATE CANCER, SKIN CANCER UNDER LEFT EYE) - Surgical History Cardiac Surgeries: Sugical HX of: Cardiac Surgery (LEFT LEG VEIN ABLATION 2011. DR JIM) Thoracic Surgeries: Surgical HX of;: Lithotripsy (X1 ) HEENT Surgeries: Surgical HX of: Eye Surgery (CATARACT SURGERY RIGHT EYE) Abdominal Surgeries: Surgical HX of: Colonoscopy (2014 DR SUGGS) Reproductive Surgeries: Surgical HX of;: Cystoscopy (), Genitourinary Surgery (TURB), Prostate Surgery, Vasectomy Orthopedic Surgeries: Surgical HX of;: Total Knee Replacement (LEFT) - Family History Family History: Reports;: Family Cancer (BROTHER), Family Diabetes (BROTHER), Family Heart Disease (SIBLINGS), Family Hematology (child), Family Hypertension (PARENTS BROTHER), Family Stroke (PARENTS) - Social History Smoking Status: Never smoker Frequency of Alcohol Use: None Type of Drug Use: None Exam - Constitutional Vitals: Period Temp Pulse Resp BP Sys/Herrera Pulse Ox Last 24 Hr 97.6 F-98.9 F 53-84 16-20 131-187/62-84 91-95 Results - Labs CBC & BMP: 10/07/16 04:46 10/07/16 04:46 Quality Measures - VTE Contraindication to Mechanical VTE Prophylaxis: Current Diagnosis of DVT
[2016-10-07] MEDS: RIVAROXABAN 10 MG TABLET PO SCH ×2 (14:06→20:28)
[2016-10-07] MEDS: TAMSULOSIN 0.4 MG CAPSULE PO SCH (20:29)
[2016-10-08 05:54] LABS: Albumin 2.2 G/DL (3.4-5.0); Bilirubin,Total 0.9 MG/DL (0.2-1.0); Calcium 8.5 MG/DL (8.5-10.1); Magnesium 1.8 MG/DL (1.8-2.4); Potassium 3.8 MMOL/L (3.5-5.1); Total Protein 5.2 G/DL (6.4-8.3)
[2016-10-08] MEDS: FAMOTIDINE 20 MG/2 ML VIAL IV SCH ×2 (05:59→18:00)
[2016-10-08] MEDS: PSYLLIUM POWDER 3.7 GM/PACK PO SCH (08:34)
[2016-10-08] MEDS: ATENOLOL 50 MG TABLET PO SCH ×2 (08:34→21:24)
[2016-10-08] MEDS: VITAMIN E 200 UNIT CAPSULE PO SCH (08:34)
[2016-10-08] MEDS: FUROSEMIDE 20 MG TABLET PO SCH (08:35)
[2016-10-08] MEDS: OMEGA 3 ACID ETHYL ESTERS 1 GM CAPSULE PO SCH (08:35)
[2016-10-08] MEDS: RIVAROXABAN 10 MG TABLET PO SCH ×2 (08:35→21:24)
[2016-10-08] MEDS: AMIODARONE 200 MG TABLET PO SCH ×2 (08:35→21:25)
[2016-10-08] MEDS: ASCORBIC ACID 500 MG TABLET PO SCH (08:36)
--- NOTE | 2016-10-08 09:15 | Hospitalist Progress Note ---
Assessment and Plan - Time spent with patient Time spent with patient: Less than 30 minutes (1) Left leg DVT Status: Acute Assessment and plan: Mr. Lewis is a very pleasant 80-year-old white male with history of hypertension , A. fib on weight-based Lovenox since Sunday, bladder cancer status post chemo, prostate cancer 2 admitted by the hospitalist service with nausea and vomiting and abdominal pain due to pancreatitis. Patient is being admitted to the floor on a monitored bed and given IV fluids, n.p.o. status, pain and nausea control. Oncology will be consulted for his bladder and prostate cancer and management of this new onset DVT. As of Sunday patient's Coumadin had been stopped and weight-based Lovenox had been started per physician at [facility]. We will go ahead and place a Bonilla due to the volume of fluids to be given and patient's dysuria. A Bonilla cannot be placed by nursing staff will go ahead and consult urology to help. Patient's home meds will be restarted as well. Dr. Ayala to see and examined patient and further recommendations to follow. 10/08/16 patient looks and feels much better. Tolerating a clear liquid diet without difficulty. His lipase has normalized. We will advance his diet to soft mechanical today and see how he tolerates. We will also INT the patient and DC his Bonilla to make sure he can urinate. Dr. Ozuna from oncology saw patient in consult yesterday. He went ahead and switched the patient from Lovenox to Xarelto thinking this possibly could be the cause of his pancreatitis. Patient is tolerating this at this time. Patient is receiving neoadjuvant chemotherapy for bladder cancer with muscle invasion. Patient has also seen a physician at [facility] to see if there is any further recommendations. If patient tolerates his diet today and is feeling better he possibly could go home tomorrow or Sunday. Dr. Ayala has seen and examined patient and further recommendations to follow. Current Visit: Yes Qualifiers: Affected thrombotic vein of extremity: femoral (2) Bladder cancer Status: Acute Current Visit: Yes (3) Prostate cancer Status: Acute Current Visit: Yes (4) History of atrial fibrillation Status: Acute Current Visit: Yes (5) Hypertension Status: Acute Current Visit: Yes (6) Abdominal pain Status: Acute Current Visit: Yes (7) Pancreatitis Status: Acute Current Visit: Yes Qualifiers: Chronicity: acute Pancreatitis type: idiopathic Acute pancreatitis complication: no infection or necrosis Qualified Code(s): K85.00 - Idiopathic acute pancreatitis without necrosis or infection (8) Nausea & vomiting Status: Acute Current Visit: Yes Hospitalist: Subjective Interval history: Patient feels a little bit better this morning. Abdominal pain is improved but not completely resolved. He tolerated his clear liquid diet this morning. States he also got up on the edge of the bed and stood up a couple times on his own. Exam - Constitutional Vitals: Period Temp Pulse Resp BP Sys/Herrera Pulse Ox Last 24 Hr 97.6 F-99 F 56-57 18-20 123-147/64-72 90-91 Exam: 80-year-old white male, no acute distress, alert and oriented Chest clear CV regular rate and rhythm Abdomen obese, mildly tender throughout Extremities with mild edema Results - Labs CBC & BMP: 10/07/16 04:46 10/08/16 04:47 Lab Results: I have reviewed the past 24 hour labs Quality Measures - VTE Contraindication to Mechanical VTE Prophylaxis: Current Diagnosis of DVT
--- NOTE | 2016-10-08 09:48 | Gastrointestinal Progress Note ---
Assessment and Plan (1) Pancreatitis Status: Acute Current Visit: Yes Qualifiers: Chronicity: acute Pancreatitis type: idiopathic Acute pancreatitis complication: no infection or necrosis Qualified Code(s): K85.00 - Idiopathic acute pancreatitis without necrosis or infection (2) Other specified counseling Status: Acute Current Visit: Yes Exam (Progress Note) - Constitutional Vitals: Period Temp Pulse Resp BP Sys/Herrera Pulse Ox Last 24 Hr 97.6 F-99 F 56-57 18-20 123-147/64-72 90-91 Results - Labs CBC & BMP: 10/07/16 04:46 10/08/16 04:47 Note Addendum: PLEASE NOTE -- automatic citation of patient information is unavoidable in this electronic note. I have made a reasonable effort to review the information cited , but it is not a part of my evaluation, impression, or recommendation unless specifically discussed in the dictated text that follows. As well, voice recognition software was used in the creation of this clinical note. Reasonable effort was made to identify and correct gross errors. Despite proofreading, errors in research animal attendant may be present, including nonsense verbiage at times. If you encounter such an error, please contact me at for discussion and correction. -- Mary Jo Chief complaint: abdominal pain, nausea, vomiting History of present illness: This is a 80-year-old male seen for follow-up of abdominal pain with nausea and vomiting. The patient was continued on supportive care overnight. Vital signs have remained stable. He has tolerated clear liquids and is quite hungry. He is eating and regular lunch as we talk. He is enjoying good urine output. No bowel movements have been noted. Serum lipase levels have dropped precipitously. Remaining electrolyte levels are in the normal range. Review of systems: 12 point review of systems was negative except as documented above. Inpatient medications: amiodarone, atenolol, Lovenox, Pepcid, Lasix, [place], Zofran, sodium chloride infusion, Flomax, Son[place] Physical examination: Vital Signs: Current vital signs reviewed and documented above. General Appearance: lying in bed. Comfortable. No apparent distress. Head: Normocephalic. Neck: Palpation of the neck revealed no abnormalities. Eyes: No scleral icterus. No scleral injection. No conjunctival pallor. Oral Cavity: Odor of breath was normal. No drooling was observed. Lips showed no abnormalities. Floor of the mouth showed no abnormalities. Pharynx: Oropharynx was normal. Lungs: Respiration rhythm and depth was normal. Cardiovascular: Heart rate and rhythm were normal. No murmurs were appreciated. Abdomen: abdomen was not distended. Abdominal palpation revealed mild tenderness and no hepatosplenomegaly. Ascites was not discovered. Abdominal auscultation revealed positive bowel sounds. Musculoskeletal System: Musculoskeletal system was grossly normal. Neurological: level of consciousness was normal. Speech was normal. Skin: General appearance was normal. Color and pigmentation were normal. No skin lesions. Laboratory: complete blood count is pending, ALT 20, AST 16, total bilirubin 0.9 , lipase 285 Radiology: CT of the abdomen and pelvis, main 2016 -- CT changes consistent with acute pancreatitis; several non-G.I. findings Impressions: 1. Acute pancreatitis -- I recommend continued volume and electrolyte management , advancing diet as tolerated, and analgesia as indicated. I recommend careful scrutiny of the medication list with particular attention to the medications we discussed yesterday. This would appear to be a mild episode of pancreatitis and the patient seems to be recovering nominally. 2. Other specified counseling -- The patient was seen for less than 30 minutes. The patient was counseled for greater than 50% of this time regarding differential diagnosis, likely diagnosis, diagnostic and therapeutic alternatives, risks/benefits/alternatives of medications and procedures, and plan of care generally. The patient expressed understanding and wishes to proceed. Recommendations: -- continue aggressive volume management -- advance diet as tolerated -- continued analgesia as indicated -- minimize medications to whatever extent possible with particular consideration of Lovenox, Lasix and amiodarone -- thank you for this consultation. Dr. Mendoza will assume G.I. care for this patient tomorrow.
--- NOTE | 2016-10-08 10:01 | Oncology Progress Note ---
Oncology Subjective PN Interval history: Mr. Lewis was admitted with acute pancreatitis. He also has underlying bladder cancer and prostate cancer and has been on chemotherapy for the bladder cancer consisting of Gemzar and cis-ekuk. We stopped the Lovenox yesterday because it can cause pancreatitis and also because the patient mentioned that fact to me before I had even reviewed his case completely. I ordered a CA-19-9 on him yesterday and it is 140.0 which is elevated. An elevated CA-19-9 can occur in pancreatic cancer, chronic pancreatitis, choledocholithiasis, cholangitis and jaundice. He is feeling better today and clearly has less epigastric abdominal tenderness. His oral mucosa is normal. His lungs are relatively clear with slightly coarse breath sounds. Heart sounds are normal. I can hear bowel sounds. Yesterday he flinched when I placed the head of my stethoscope on his epigastrium and he does not do that today. He is continuing to improve slowly. Exam - Constitutional Vitals: Period Temp Pulse Resp BP Sys/Herrera Pulse Ox Last 24 Hr 97.6 F-99 F 55-57 18-20 123-147/64-99 90-94 Results - Labs CBC & BMP: 10/07/16 04:46 10/08/16 04:47 Quality Measures - VTE Contraindication to Mechanical VTE Prophylaxis: Current Diagnosis of DVT
[2016-10-08] MEDS: TAMSULOSIN 0.4 MG CAPSULE PO SCH (21:25)
[2016-10-09 05:34] LABS: Basophils % 0.2 % (0.0-0.8); Eosinophils # 0.3 10*3/uL (0.0-0.87); Eosinophils % 3.2 % (0.00-10.9); Hematocrit 33.8 VOL% (42.0-52.0); Hemoglobin 11.2 GM/DL (14.0-18.0); Immature Granulocytes % 0.7 %; Immature Granulocytes Absolute 0.06 #; Lymphocytes # 1.2 10*3/uL (1.4-4.0); Lymphocytes % 13.6 % (21.2-54.2); Mean Corpuscular HGB Conc 33.1 GM/DL (32-36); Mean Corpuscular Hemoglobin 32 PG (27-34); Mean Corpuscular Volume 97.1 FL (87-102); Mean Platelet Volume 10.1 FL (9.6-12.0); Monocytes # 0.8 10*3/uL (0.11-0.8); Monocytes % 9.1 % (1.7-12.7); Neutrophils # 6.4 10*3/uL (1.4-7.4); Neutrophils % 73.2 % (38.7-73.9); Platelet Count 120 T/CUMM (130-400); Red Blood Count 3.48 MC/CUMM (3.8-5.5); Red Cell Distribution Width 16.7 % (9.3-17.3); White Blood Count 8.8 T/CUMM (4-12)
[2016-10-09 06:09] LABS: Albumin 2.1 G/DL (3.4-5.0); Bilirubin,Total 0.8 MG/DL (0.2-1.0); Calcium 8.3 MG/DL (8.5-10.1); Magnesium 1.8 MG/DL (1.8-2.4); Potassium 3.7 MMOL/L (3.5-5.1); Total Protein 5.1 G/DL (6.4-8.3)
[2016-10-09] MEDS: FAMOTIDINE 20 MG/2 ML VIAL IV SCH ×2 (06:15→17:51)
[2016-10-09] MEDS: RIVAROXABAN 10 MG TABLET PO SCH ×2 (08:59→21:16)
[2016-10-09] MEDS: PSYLLIUM POWDER 3.7 GM/PACK PO SCH (08:59)
[2016-10-09] MEDS: VITAMIN E 200 UNIT CAPSULE PO SCH (08:59)
[2016-10-09] MEDS: AMIODARONE 200 MG TABLET PO SCH ×2 (09:00→21:15)
[2016-10-09] MEDS: ATENOLOL 50 MG TABLET PO SCH ×2 (09:00→21:15)
[2016-10-09] MEDS: OMEGA 3 ACID ETHYL ESTERS 1 GM CAPSULE PO SCH (09:00)
[2016-10-09] MEDS: FUROSEMIDE 20 MG TABLET PO SCH (09:00)
[2016-10-09] MEDS: ASCORBIC ACID 500 MG TABLET PO SCH (09:00)
--- NOTE | 2016-10-09 10:09 | Gastrointestinal Progress Note ---
Assessment and Plan (1) Pancreatitis Status: Acute Assessment and plan: 10/09-mild left upper quadrant soreness. No nausea or vomiting. Afebrile. Lipase down to 225. Tolerating soft diet. Plan an addendum to followed by Dr. Mendoza Current Visit: Yes Qualifiers: Chronicity: acute Pancreatitis type: idiopathic Acute pancreatitis complication: no infection or necrosis Qualified Code(s): K85.00 - Idiopathic acute pancreatitis without necrosis or infection Gastroenterology - PN: Subj Interval history: CC: Pancreatitis Patient is seen awake and alert with at bedside. He states he had a restful night. Patient denies any further abdominal pain other than some mild soreness in his left upper quadrant. Denies any nausea vomiting. Soft diet was started on yesterday and he is tolerating this well. He denies any pain postprandial. Lipase levels are normalized now at 225. Dr. Ozuna is following him for his prostate cancer and patient has an ongoing workup regarding this. Abdomen is soft, nontender. ROS: Denies shortness of breath or chest pain Exam (Progress Note) - Constitutional Vitals: Period Temp Pulse Resp BP Sys/Herrera Pulse Ox Last 24 Hr 98.0 F-99.2 F 56-60 18-24 138-163/65-82 90-94 General appearance: normal weight, no acute distress - Head Head exam: Present: normal inspection, normocephalic - Eye Eye exam: Present: other (Lids and conjunctive are unremarkable). Absent: scleral icterus - ENT ENT exam: Present: normal exam, normal oropharynx - Neck Neck exam: Present: normal inspection - Respiratory Respiratory exam: Present: clear to auscultation bilaterally. Absent: rales, rhonchi, wheezes - Cardiovascular Cardiovascular exam: Present: regular rate and rhythm. Absent: diastolic murmur , JVD, systolic murmur - GI/Abdominal GI/Abdominal exam: Present: normal bowel sounds, soft. Absent: ascites, distended, mass, organomegaly, tenderness - Extremities Exam Extremities exam: Present: normal inspection, full ROM - Back Exam Back exam: Present: normal inspection - Neurological Exam Neurological exam: Present: alert, oriented X3 - Psychiatric Psychiatric exam: Present: normal affect, normal mood - Skin Skin exam: Present: normal color, warm, dry Results - Labs CBC & BMP: 10/09/16 05:09 10/09/16 05:08 Lab Results: I have reviewed the past 24 hour labs
--- NOTE | 2016-10-09 14:05 | Hospitalist Progress Note ---
Assessment and Plan (1) Acute pancreatitis Status: Acute Assessment and plan: Symptomatically improved tolerating food Current Visit: Yes (2) Bladder mass Status: Acute Assessment and plan: Patient has some history of urinary dribbling and he would like to keep Bonilla catheter even if after he goes home . with a left hydro-nephrosis stable renal function. I could not consider urology as patient has mentioned about his relationship with a local urologist. I have spoken to Dr. Pérez at the [facility] and discussed the case with him. Patient has a chronic left hydronephrosis and seems like it is not complete. He plan to follow-up in in next month to discuss surgical option. Will keep Bonilla catheter and consult home health to assist with management after discharge Current Visit: Yes (3) Anemia Status: Acute Assessment and plan: Doppler of hemoglobin hematocrit likely due to hydration since admission no overt bleeding GI also following Current Visit: Yes (4) Left leg DVT Status: Acute Assessment and plan: On Xarelto at the dose recommended by Dr. Ozuna Current Visit: Yes Qualifiers: Affected thrombotic vein of extremity: femoral (5) History of atrial fibrillation Status: Acute Assessment and plan: On amiodarone and has regular rhythm now on Xarelto for anticoagulation Current Visit: Yes (6) Prostate cancer Status: Acute Current Visit: Yes Hospitalist: Subjective Interval history: Mr. Lewis is a 80 year old male with history of A. fib on Coumadin, prostate cancer 2, bladder cancer, and hypertension. He had left hydronephrosis shown on Ct last month. He was at the [facility] last week and seen by Dr. Pérez (urologist ) . He had failed chemotherapy he does not have a good relationship with a local urologist so he could not see anybody here. He is also seen by Dr. Judge ( oncologist) but seen by Dr. Salcedo here over the weekend. He went to Dr. Pérez for surgery for bladder cancer. He was noted to have a swelling of the legs and diagnosed to have a left leg DVT. He was started on Lovenox as he was on warfarin with the DVT . Dr. Pérez has plan to see him next month to evaluate for surgery. He was admitted here on 10/06/2016 with nausea vomiting and abdominal pain and diagnosed to have acute pancreatitis. No apparent cause but due to potential etiology Lovenox was discontinued and patient was placed on Xarelto. He was n.p.o. his lipase was more than 23,000 on admission. Today it is down to 225 patient is symptomatically improved and has been tolerating solid food. Exam - Constitutional Vitals: Period Temp Pulse Resp BP Sys/Herrera Pulse Ox Last 24 Hr 98.0 F-99.2 F 57-60 18-24 138-165/65-79 90-94 General appearance: no acute distress - Respiratory Respiratory exam: Present: clear to auscultation bilaterally. Absent: rales, rhonchi - Cardiovascular Cardiovascular exam: Present: regular rate and rhythm. Absent: tachycardia - GI/Abdominal GI/Abdominal exam: Present: normal bowel sounds, tenderness (Mild discomfort on palpation epigastrium without any rigidity or rebound), soft. Absent: distended - Extremities Exam Extremities exam: Absent: edema - Neurological Exam Neurological exam: Present: alert, oriented X3 Results - Labs CBC & BMP: 10/09/16 05:09 10/09/16 05:08 Lab Results: I have reviewed the past 24 hour labs Quality Measures - VTE Contraindication to Mechanical VTE Prophylaxis: Current Diagnosis of DVT
--- NOTE | 2016-10-09 17:13 | Oncology Progress Note ---
Oncology Subjective PN Interval history: Mr. 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 He was referred to [facility] who recommended neoadjuvant chemotherapy. We did 2 months of Gemzar plus cisplatin and a follow-up CT scan showed no improvement in his bladder mass. I then referred him back to [facility] for evaluation for surgical resection. Upon his evaluation at [facility] he was found to have a lower extremity DVT and was placed on Lovenox. He was admitted to the hospital [place] in [place] with pancreatitis after being on Lovenox for just 2 days. I spoke with his medical oncologist at [facility] today who states their pathology department is reading his recent cystoscopy biopsies as a [place] 10 prostate cancer and not a muscle invasive bladder cancer. This would explain why he showed no response to chemotherapy. His PSA recently was less than 1 but he states his PSA is always low even back when he had definitive prostate cancer 20 years ago. I will ask our pathologist to review his recent cystoscopy biopsy for a second time to see if they agree with original diagnosis or if they agree with [facility]'s most recent diagnosis. I will set him up for a bone scan in the morning and also recheck a PSA level. From my standpoint he can be discharged home and I can resume workup of his current malignancy as an outpatient. It appears that his outpatient treatment for DVT will likely be Xarelto. I am unsure if he will be able to afford this since he had difficult time affording Lovenox. There is no cheaper option for anticoagulation other than Coumadin. If he is discharged, I need to see him in clinic in 2-3 weeks. Exam - Constitutional Vitals: Period Temp Pulse Resp BP Sys/Herrera Pulse Ox Last 24 Hr 97.9 F-99.2 F 52-58 18-24 137-167/68-80 90-94 Results - Labs CBC & BMP: 10/09/16 05:09 10/09/16 05:08 Quality Measures - VTE Contraindication to Mechanical VTE Prophylaxis: Current Diagnosis of DVT
[2016-10-09] MEDS: TAMSULOSIN 0.4 MG CAPSULE PO SCH (21:15)
[2016-10-10] MEDS: FAMOTIDINE 20 MG/2 ML VIAL IV SCH (05:52)
--- NOTE | 2016-10-10 08:24 | Discharge Summary ---
<Ady Gallegofranciaholgerhaily - Last Filed: 10/10/16 08:30> Hospital Course - Hospital Course Hospital Course: Mr. Lewis is a 80 year old white male with history of A. fib on Coumadin, prostate cancer 2, bladder cancer, and hypertension who presented to the ED with nausea, vomiting and abdominal pain on 10/06. Pt. reported that he was recently diagnosed with prostate and bladder cancer around May and has undergone [address] Reno. Pt. stated that he had been diagnosed with a blood clot prior to admission and also wanted his left leg evaluated. Pt. had previously been on Coumadin. Pt. was noted to have bilateral lower extremity edema with left greater than right. CT scan of the abdomen and pelvis showed 'continued prominent left-sided hydronephrosis and hydroureter related to abnormal soft tissue thickening at the base of the bladder at the UVJ level'. This represents metastatic prostate cancer and primary bladder neoplasm. Pt's labs also revealed 1510 amylase and lipase was 23.131. The patient was admitted for further eval and treatment. Pt. was given aggressive hydration and a galeano was placed. GI was consulted to assist with care. Recommendations were made to continue hydration and continue pain management. Oncology also saw patient and changed patient from Lovenox to Xarelto. During the course of the patient's hospital stay, the patient began to improve and diet was advanced and he was able to tolerate his diet. The patient's nausea, vomiting and pain has resolved. He was cleared from oncology's standpoint on . The patient's labs are stable. Will go home on xarelto and follow up with oncology in 2 weeks. Lipase is now 225. to follow Specialty Discharge - Follow Up or Referrals Follow up with: Harsh Reno MD [Physician] - 10/24/16 11:00 am Discharge Plan - Discharge Data Disposition: Disch To Home/Self Care - Discharge Medications New Rivaroxaban [Xarelto] 20 mg PO DAILY #30 tablet Continue [place]-3S/Dha/Epa/Fish Oil [Fish Oil 1,200 mg Softgel] 1 each PO DAILY Psyllium Seed (with Sugar) [Metamucil Powder] 822 gm PO DAILY Ascorbic Acid [Vitamin C] 250 mg PO DAILY Tamsulosin [Flomax] 0.4 mg PO DAILY Furosemide Tab [Lasix Tab] 20 mg PO DAILY Atenolol 50 mg PO BID Amiodarone Tab [Cordarone Tab] 200 mg PO BID Ranitidine Tab [Zantac Tab] 75 mg PO DAILY amLODIPine [Norvasc] 5 mg PO DAILY Vitamin E Acid Succinate [Vitamin E] 1 tablet PO DAILY Discontinued Enoxaparin [Lovenox] 120 mg SUBCUT Q24H - Follow Up or Referral Follow Up: Harsh Reno MD [Physician] - 10/24/16 11:00 am - Forms/Instructions Exam - Constitutional Vitals: Period Temp Pulse Resp BP Sys/Herrera Pulse Ox Last 24 Hr 97.9 F-100 F 52-57 18-22 133-167/61-80 92-95 Discharge Results Procedures and tests throughout hospitalization: Pending Orders 10/10/16 17:09 NM bone scan whole body Routine Labs on day of discharge: Labs from last 24 hours 10/10/16 04:28 PSA Diagnostic 1.4 DS: Provider Date of admission: 10/06/16 13:15 Primary care physician: Rubio Saleem MD Attending physician on admission: Rick Ayala MD Consults: 10/06/16 13:56 Consult to Physician [CONS] Routine Comment: bladder ca and pancreatitis Consulting Provider: Harsh Reno Consulting Provider Notified: Yes When should Consulting Provider be notified: Now Consult to Specialist Group: Oncology When should Consulting Provider be notified: Now Person Notified: HAMIDA Date Notified: 10/06/16 Time Notified: 14:00 Consult to Physician [CONS] Routine Comment: pancreatitis, acute Consulting Provider: Lonnie Mendoza Consulting Provider Notified: Yes When should Consulting Provider be notified: Now Consult to Specialist Group: Gastroenterology When should Consulting Provider be notified: Now Person Notified: DR MENDOZA NOTIFIED Date Notified: 10/06/16 Time Notified: 14:08 10/09/16 14:06 Consult to Case Mgmt/Social Srvs [CONS] Routine Reason for Case Mgmt/Social Srvs: Home Health Discharging clinician: Radha Gallego NP <Adonay Knott - Last Filed: 10/10/16 09:32> Hospital Course - Hospital Course Hospital Course: Patient is asymptomatic for acute pancreatitis and tolerating diet. As I had mentioned he has chronic left hydronephrosis because of the cancer of the bladder wall which is suspected to be prostate cancer by oncology. I talked to Dr. Arreola who has spoken to his oncologist at [facility]. He is going to go out with the Galeano catheter due to patient preference as he has dribbling of urine. Home health was ordered. For DVT he has to take Xarelto 20 mg daily I have given him prescription for 30 day supply he will be following Dr. Arreola in 2-3 weeks Diagnosis - Discharge Diagnosis (1) Acute pancreatitis Status: Acute (2) Bladder mass Status: Chronic (3) Anemia Status: Chronic (4) Left leg DVT Status: Acute (5) History of atrial fibrillation Status: Chronic (6) Prostate cancer Status: Chronic Discharge Plan - Discharge Data Condition at Discharge: Stable Discharge Diet: advance to your usual diet Activity: resume usual activities as tolerated Exam - Constitutional General appearance: no acute distress - Respiratory Respiratory exam: Present: clear to auscultation bilaterally. Absent: rales, rhonchi - Cardiovascular Cardiovascular exam: Present: regular rate and rhythm. Absent: tachycardia - GI/Abdominal GI/Abdominal exam: Present: normal bowel sounds, soft. Absent: distended, tenderness - Extremities Exam Extremities exam: Absent: edema - Neurological Exam Neurological exam: Present: alert, oriented X3
[2016-10-10] MEDS: RIVAROXABAN 10 MG TABLET PO SCH (09:07)
[2016-10-10] MEDS: OMEGA 3 ACID ETHYL ESTERS 1 GM CAPSULE PO SCH (09:08)
[2016-10-10] MEDS: VITAMIN E 200 UNIT CAPSULE PO SCH (09:08)
[2016-10-10] MEDS: PSYLLIUM POWDER 3.7 GM/PACK PO SCH (09:08)
[2016-10-10] MEDS: ASCORBIC ACID 500 MG TABLET PO SCH (09:08)
[2016-10-10] MEDS: AMIODARONE 200 MG TABLET PO SCH (09:08)
[2016-10-10] MEDS: FUROSEMIDE 20 MG TABLET PO SCH (09:08)
[2016-10-10] MEDS: ATENOLOL 50 MG TABLET PO SCH (09:08)
[2016-10-10 10:24] VITALS: BP 144/69
--- NOTE | 2016-10-10 12:15 | Nuclear Medicine Report ---
Exam: Whole-body bone scan Date: October 10, 2016 Comparison: CT abdomen and pelvis October 06, 2016 Reason: Prostate cancer Technique: 30 mCi of technetium 99m MDP was administered IV. Delayed anterior and posterior whole body images were then acquired. Findings: There is increased radiotracer activity at the posterior left fifth rib and at the anterolateral right fifth and seventh ribs. This is concerning for osseous metastatic disease in this patient with a history of prostate cancer. There may also be an additional metastatic focus at the anterior left second rib. There is mild activity at the shoulders, sternoclavicular joints and left mid cervical spine. This is likely degenerative. Note is made of a possible left knee replacement.. There is suggestion of left hydronephrosis as seen on the recent CT. Impression: 1. There is increased radiotracer activity at some of the ribs bilaterally. This is concerning for osseous metastatic disease in this patient with a history of prostate cancer. 2. There is suggestion of left hydronephrosis as seen on the recent CT. PROCEDURE INTERPRETED AT [facility] DEPARTMENT OF RADIOLOGY Final Report Signed by: Dr. Magalys Ortega
== END 2016-10-10 12:17 | disposition home health service (06) | DRG 439 ==
LOC: N.ED 09:25 → SUATTDRO 13:15 → N.EDINP 13:15 → N.4E 13:38
PROVIDERS: ADMIT Internal Medicine; ATTEND Internal Medicine

== ENCOUNTER 2019-03-29 06:29 | Inpatient (IN) ==
[2019-03-29 07:47] LABS: Basophils % 0.5 % (0.0-0.8); Eosinophils # 0.1 10*3/uL (0.0-0.87); Eosinophils % 1.6 % (0.00-10.9); Hematocrit 43.2 VOL% (42.0-52.0); Hemoglobin 14.3 GM/DL (14.0-18.0); Immature Granulocytes % 0.2 %; Immature Granulocytes Absolute 0.02 #; Lymphocytes # 1.7 10*3/uL (1.4-4.0); Lymphocytes % 20.6 % (21.2-54.2); Mean Corpuscular HGB Conc 33.1 GM/DL (32-36); Mean Corpuscular Volume 95.4 FL (87-102); Mean Platelet Volume 9.2 FL (9.6-12.0); Neutrophils % 66.1 % (38.7-73.9); Platelet Count 159 T/CUMM (130-400); Red Blood Count 4.53 MC/CUMM (3.8-5.5); Red Cell Distribution Width 13.8 % (9.3-17.3); White Blood Count 8.2 T/CUMM (4-12)
[2019-03-29 08:03] LABS: Apearance,Urine CLOUDY (Clear); Bilirubin,Total 0.5 MG/DL (0.2-1.0); Bilirubin,Urine Negative (Negative); Blood, Urine Moderate mg/dL (Negative); Calcium 9.5 MG/DL (8.5-10.1); Glucose,Urine (UA) Negative (Negative); Ketones,Urine Negative (Negative); Nitrite,Urine Positive (Negative); Osmolality,Calculated 280.4 MOS/KG (273-304); Protein,Urine 100 MG/DL; Total Protein 7.1 G/DL (6.4-8.3); Urine Color Yellow (Yellow); Urine Specific Gravity 1.016 (1.001-1.035); Urine Urobilinogen < 2.0 EU/DL (0.2-1.0); WBC,Urine 1350 /HPF (0-6)
[2019-03-29] MEDS ORDERED: DEXAMETHASONE 10 MG/1 ML VIAL IV STA ×2 (10:15→10:20)
[2019-03-29] MEDS ORDERED: ACETAMINOPHEN 325 MG TABLET PO PRN (10:52)
[2019-03-29] MEDS ORDERED: ONDANSETRON 4 MG/2 ML VIAL IV PRN (10:52)
[2019-03-29] MEDS ORDERED: MORPHINE 4 MG/1 ML VIAL IV PRN (10:52)
[2019-03-29] MEDS ORDERED: PROMETHAZINE 25 MG/1 ML VIAL IM PRN (10:52)
[2019-03-29] MEDS ORDERED: ALUM/MAG/SIMETH/LIDO VISC 1:1 30 ML BOTTLE PO ONE (15:08)
[2019-03-29] MEDS: cefTRIAXone 1,000 MG in SYRINGE 1 EACH IV SCH (16:35)
[2019-03-29] MEDS: DOCUSATE SODIUM 100 MG CAPSULE PO SCH (20:19)
[2019-03-29] MEDS: OMEGA 3 ACID ETHYL ESTERS 1 GM CAPSULE PO SCH (20:19)
[2019-03-30] MEDS: amLODIPine 10 MG TABLET PO SCH (09:16)
[2019-03-30] MEDS: MULTIVITAMIN (CENTRUM) TABLET PO SCH (09:16)
[2019-03-30] MEDS: DOCUSATE SODIUM 100 MG CAPSULE PO SCH ×2 (09:17→21:02)
[2019-03-30] MEDS: OMEGA 3 ACID ETHYL ESTERS 1 GM CAPSULE PO SCH ×2 (09:17→21:02)
[2019-03-30] MEDS: PANTOPRAZOLE 40 MG TABLET PO SCH (09:18)
[2019-03-30] MEDS: POLYETHYLENE GLYCOL POWDER 17 GM PACK PO SCH (09:22)
[2019-03-30] MEDS ORDERED: BISACODYL 10 MG SUPP RECTAL ONE (11:06)
[2019-03-30] MEDS: cefTRIAXone 1,000 MG in SYRINGE 1 EACH IV SCH (11:40)
[2019-03-30] MEDS ORDERED: ONDANSETRON 4 MG TABLET PO PRN (12:07)
[2019-03-30] MEDS ORDERED: ONDANSETRON 4 MG/2 ML VIAL IV PRN (12:25)
[2019-03-30] MEDS ORDERED: TEMAZEPAM 7.5 MG CAPSULE PO PRN (12:25)
[2019-03-30] MEDS ORDERED: traMADol 50 MG TABLET PO PRN (12:25)
[2019-03-30] MEDS ORDERED: chlorproMAZINE 25 MG TABLET PO PRN (12:25)
[2019-03-30] MEDS ORDERED: ACETAMINOPHEN 325 MG TABLET PO PRN (12:25)
[2019-03-30] MEDS ORDERED: chlorproMAZINE INJ 50 MG in SODIUM CHLORIDE 0.9% 100 ML IV PRN (12:25)
[2019-03-30] MEDS ORDERED: PROMETHAZINE INJ 25 MG in SODIUM CHLORIDE 0.9% 50 ML IV PRN (12:25)
[2019-03-30] MEDS ORDERED: chlorproMAZINE INJ 25 MG in SODIUM CHLORIDE 0.9% 100 ML IV PRN (12:25)
[2019-03-30] MEDS ORDERED: diphenhydrAMINE CAP 25 MG CAPSULE PO PRN (12:25)
[2019-03-30] MEDS ORDERED: LACTULOSE 20 GM/30 ML UDCUP PO PRN (12:25)
[2019-03-30] MEDS ORDERED: MYLANTA/LIDO VISC 2:1 300 ML BOTTLE SWISH/SPIT PRN (12:25)
[2019-03-30] MEDS ORDERED: ALUMINUM/MAGNES/SIMETH MAX STR 30 ML UDCUP PO PRN (12:25)
[2019-03-30] MEDS ORDERED: MAGNESIUM HYDROXIDE SUSP 30 ML UDCUP PO PRN (12:25)
[2019-03-30] MEDS ORDERED: guaiFENesin 200 MG/10 ML UDCUP PO PRN (12:25)
[2019-03-30] MEDS ORDERED: LOPERAMIDE 2 MG CAPSULE PO PRN ×2 (12:25)
[2019-03-30] MEDS ORDERED: ALPRAZolam 0.25 MG TABLET PO PRN (12:25)
[2019-03-30] MEDS: MYLANTA/LIDO VISC 2:1 300 ML BOTTLE SWISH/SWAL PRN ×2 (15:39→21:26)
[2019-03-30] MEDS: DEXAMETHASONE INJ 20 MG in SODIUM CHLORIDE 0.9% 50 ML IV SCH ×2 (15:40→22:00)
[2019-03-30] MEDS: SUCRALFATE 1 GM/10 ML UDCUP PO SCH (17:29)
[2019-03-30] MEDS ORDERED: FAMOTIDINE 20 MG TABLET PO SCH (21:00)
[2019-03-30] MEDS: AMIODARONE 200 MG TABLET PO SCH (21:02)
[2019-03-30] MEDS: ATENOLOL 50 MG TABLET PO SCH (21:02)
[2019-03-31 06:33] LABS: Calcium 9.8 MG/DL (8.5-10.1); Osmolality,Calculated 285.5 MOS/KG (273-304)
[2019-03-31] MEDS: MYLANTA/LIDO VISC 2:1 300 ML BOTTLE SWISH/SWAL PRN ×2 (07:59→12:09)
[2019-03-31] MEDS: OMEGA 3 ACID ETHYL ESTERS 1 GM CAPSULE PO SCH (08:00)
[2019-03-31] MEDS: DOCUSATE SODIUM 100 MG CAPSULE PO SCH (08:00)
[2019-03-31] MEDS: amLODIPine 10 MG TABLET PO SCH (08:00)
[2019-03-31] MEDS: ATENOLOL 50 MG TABLET PO SCH (08:00)
[2019-03-31] MEDS: PANTOPRAZOLE 40 MG TABLET PO SCH (08:00)
[2019-03-31] MEDS: AMIODARONE 200 MG TABLET PO SCH (08:00)
[2019-03-31] MEDS: MULTIVITAMIN (CENTRUM) TABLET PO SCH (08:00)
[2019-03-31] MEDS: SUCRALFATE 1 GM/10 ML UDCUP PO SCH ×2 (08:01→15:39)
[2019-03-31] MEDS: POLYETHYLENE GLYCOL POWDER 17 GM PACK PO SCH (08:01)
[2019-03-31] MEDS: DEXAMETHASONE 4 MG TABLET PO SCH ×2 (08:08→15:39)
[2019-03-31] MEDS ORDERED: CYANOCOBALAMIN 1000 MCG/1 ML VIAL SUBCUT SCH (09:00)
[2019-03-31] MEDS ORDERED: PSYLLIUM POWDER 3.7 GM/PACK PO SCH (09:00)
[2019-03-31] MEDS ORDERED: FUROSEMIDE 20 MG TABLET PO SCH (09:00)
[2019-03-31] MEDS ORDERED: ZINC OXIDE PASTE 113 GM TUBE TOP SCH (12:00)
[2019-03-31] MEDS: cefTRIAXone 1,000 MG in SYRINGE 1 EACH IV SCH (12:09)
[2019-03-31 16:13] VITALS: BP 147/72
== END 2019-03-31 19:17 | disposition hospice, home (50) | DRG 542 ==
LOC: N.ED 06:29 → N.EDINP 10:52 → N.4E 12:28
PROVIDERS: ADMIT Internal Medicine; ATTEND Internal Medicine